=== PATIENT | female | born 1970 | race Caucasian/White ===

== ENCOUNTER → 2019-11-23 09:47 | Outpatient (BNVA) | payer MEDICAID, SELFPAY | PROVIDERS: PCP Nurse Practitioner Family; Visit Provider Specialist | DX: G43.711 Chronic migraine without aura, intractable, with status migrainosus (principal); F17.210 Nicotine dependence, cigarettes, uncomplicated | CPT/HCPCS: 64615; J0585 ==

== ENCOUNTER → 2020-02-29 09:18 | Outpatient (BNVA) | payer MEDICAID, SELFPAY | PROVIDERS: PCP Nurse Practitioner Family; Visit Provider Specialist | DX: G43.711 Chronic migraine without aura, intractable, with status migrainosus (principal); I65.29 Occlusion and stenosis of unspecified carotid artery; F17.210 Nicotine dependence, cigarettes, uncomplicated | CPT/HCPCS: 64615; J0585 ==

== ENCOUNTER → 2020-07-04 08:13 | Outpatient (BNVA) | payer MEDICAID, SELFPAY | PROVIDERS: PCP Nurse Practitioner Family; Visit Provider Specialist | DX: G43.711 Chronic migraine without aura, intractable, with status migrainosus (principal); I65.23 Occlusion and stenosis of bilateral carotid arteries | CPT/HCPCS: 64615; 99212; J0585 ==

== ENCOUNTER → 2020-10-10 13:39 | Outpatient (BNVA) | payer MEDICAID, SELFPAY | PROVIDERS: PCP Nurse Practitioner Family; Visit Provider Specialist | DX: G43.711 Chronic migraine without aura, intractable, with status migrainosus (principal); I65.29 Occlusion and stenosis of unspecified carotid artery; F17.210 Nicotine dependence, cigarettes, uncomplicated | CPT/HCPCS: 64615; J0585 ==

== ENCOUNTER → 2021-01-02 09:47 | Outpatient (BNVA) | payer MEDICAID, SELFPAY | PROVIDERS: PCP Nurse Practitioner Family; Visit Provider Specialist | DX: G43.711 Chronic migraine without aura, intractable, with status migrainosus (principal); I65.29 Occlusion and stenosis of unspecified carotid artery; F17.210 Nicotine dependence, cigarettes, uncomplicated | CPT/HCPCS: 64615; 99213; J0585 ==

== ENCOUNTER 2021-01-09 09:33 | Outpatient (CLI) | payer MEDICAID, SELFPAY ==
--- NOTE | 2021-01-09 09:36 | XR_ITS ---
WS: [id number] Left foot, 3 views, 01/09/2021 Clinical Data: PAIN IN LEFT TOE/UNABLE TO BEND TOE HAVING PAIN Comparison: Left foot, 09/10/2008. Findings: There is osteoarthritic narrowing and sclerosis of the left first MTP joint of the foot. There are no fractures or dislocations. The soft tissues are normal. 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
== END 2021-01-09 09:34 | disposition home or self-care (01) ==
LOC: RAD 09:35
PROVIDERS: PCP Nurse Practitioner Family; Visit Provider Nurse Practitioner Family
DX: M19.072 Primary osteoarthritis, left ankle and foot (principal)
CPT/HCPCS: 73630

== ENCOUNTER 2021-01-14 12:14 | Outpatient (CLI) | payer MEDICAID, SELFPAY ==
--- NOTE | 2021-01-14 13:30 | USCV_ITS ---
Butch Alansi Age: 50 Gender: F : 1970 Exam Date: 01/14/2021 12:47 Ordering Phys: Lindsey Brown MD Technologist: Lorne Johnson Exam Location: [facility] [place] Indication: HX OF RT ICA STENT Risk Factors: SMOKER Previous Vascular Surgery: Right Brachial BP: / Left Brachial BP: / Right Left Velocity (cm/s) Spectral Plaque Velocity (cm/s) Spectral Plaque Syst/Diast Broadening Syst/Diast Broadening 58.40/ 20.90 Prox CCA 77.70 / 25.60 59.50/ 25.40 Mid CCA 117.50/ 43.90 63.90/ 32.00 Distal CCA 126.10/ 53.50 149.30/57.60 Prox ICA 66.80 / 17.20 138.50/50.40 Mid ICA 111.10/ 50.10 142.10/50.40 Distal ICA 124.70/ 50.10 48.50 ECA 215.00 2.33 ICA/CCA 0.99 Antegrade Vertebral Antegrade 42.70/ 17.10 cm/s 85.40/ 29.80 cm/s Tri Subclavian Tri 69.90 64.00 CONCLUSIONS Prior Right ICA stent Right ICA stenosis 50-69%. Left ICA stenosis <50%. Normal antegrade Doppler flow noted in the right vertebral artery. Normal antegrade Doppler flow noted in the left vertebral artery. Tip Gonsales MD (Electronically Signed) Final Date: 14 January 2021 15:57 S
== END 2021-01-14 12:15 | disposition home or self-care (01) ==
LOC: RAD 12:15
PROVIDERS: PCP Nurse Practitioner Family; Visit Provider Specialist
DX: I65.23 Occlusion and stenosis of bilateral carotid arteries (principal)
CPT/HCPCS: 93880

== ENCOUNTER 2021-01-20 13:51 | Outpatient (CLI) | payer MEDICAID, SELFPAY ==
--- NOTE | 2021-01-20 13:54 | MM_ITS ---
WS: [id number] BILATERAL DIGITAL SCREENING MAMMOGRAPHY WITH CAD CLINICAL INFORMATION: SCREENING HISTORY: Screening mammogram. No current complaints. COMPARISON: February 08, 2018 TECHNIQUE: Bilateral CC and MLO views. FINDINGS: Scattered fibroglandular densities bilaterally. Lucent centered calcifications right breast. Slightly spiculated subareolar asymmetric density right breast measuring 8 mm. Recommend right breast diagnos tic mammography and ultrasound for further evaluation. Left breast is unremarkable. MM/[place] [id number] IMPRESSION: BI-RADS: 0-Incomplete: Need additional imaging evaluation FOLLOW UP: Need Additional Imaging Recommend right breast diagnostic mammography and ultrasound.
== END 2021-01-20 13:52 | disposition home or self-care (01) ==
LOC: RADSHAW 13:53
PROVIDERS: PCP Nurse Practitioner Family; Visit Provider Nurse Practitioner Family
DX: Z12.31 Encounter for screening mammogram for malignant neoplasm of breast (principal); R92.1 Mammographic calcification found on diagnostic imaging of breast
CPT/HCPCS: 77067

== ENCOUNTER 2021-02-05 09:16 | Outpatient (CLI) | payer MEDICAID, SELFPAY ==
--- NOTE | 2021-02-05 09:21 | US_ITS ---
WS: [id number] RIGHT DIGITAL MAMMOGRAPHY WITH CAD CLINICAL INFORMATION: ABNORMAL MAMMOGRAM RT BREAST COMPARISON: January 20, 2021 TECHNIQUE: 3 views of the right breast were obtained. FINDINGS: Scattered fibroglandular densities of the right breast. Again seen is the dense subareolar asymmetric density similar to previous. Ultrasound is pending. Small ovoid nodule outer quadrant right breast likely represents a lymph node but ultrasound will als o be performed in this area. ULTRASOUND BREAST RIGHT TECHNIQUE: Ultrasound right breast focused area of concern. CLINICAL INFORMATION: ABNORMAL MAMMOGRAM RT BREAST COMPARISON: None. FINDINGS: Ultrasound right breast at the nipple and 9:00 position. Underlying dense parenchymal tissue at the n ipple. No underlying cystic or solid abnormalities. No suspicious lesions. No lesions to target for b iopsy. No suspicious abnormalities in the outer right breast. US/US breast RT limited* [id number] IMPRESSION: BI-RADS: 2-Benign FOLLOW UP: 1 Year Follow-up Recommend return to annual screening mammography.
== END 2021-02-05 09:17 | disposition home or self-care (01) ==
LOC: RADSHAW 09:17
PROVIDERS: PCP Nurse Practitioner Family; Visit Provider Nurse Practitioner Family
DX: R92.8 Other abnormal and inconclusive findings on diagnostic imaging of breast (principal)
CPT/HCPCS: 76642; 77065

== ENCOUNTER → 2021-03-10 10:16 | Outpatient (BNVA) | payer MEDICAID, SELFPAY | PROVIDERS: PCP Nurse Practitioner Family; Visit Provider Podiatrist Foot & Ankle Surgery | DX: M20.20 Hallux rigidus, unspecified foot (principal); Z20.822 Contact with and (suspected) exposure to COVID-19 | CPT/HCPCS: 87635 ==

== ENCOUNTER 2021-03-14 05:32 | Day surgery (SDC) | payer MEDICAID, SELFPAY ==
[2021-03-13 14:59] VITALS: BMI 37.9
[2021-03-14] VITALS (7 sets, daily range): BP systolic 88–154; BP diastolic 60–106; PULSE 67–88; RESP 16–26; TEMP 36.4–36.7; O2SAT 95–99
--- NOTE | 2021-03-14 | SCC_ITS ---
Procedure Done: Fusion Metatarsophalangel Joint left first 29195 8 seconds of fluoroscopic guidance, for a cumulative dose of 0.15 mGy, was provided to Dr. Louie by the radiology department. C-arm images of the LEFT foot were saved for the patient's permanent record. MTDD
[2021-03-14] MEDS: sodium chloride 0.9% 1,000 ML 30 ML IV (06:28)
--- NOTE | 2021-03-14 06:28 | W.PM.OPSUD ---
Surgery/Procedure H&P Update DATE OF PROCEDURE: March 14, 2021 DATE H&P PERFORMED: 02/17/21 H&P UPDATE INFORMATION: I have reviewed H&P completed within last 30 days, I have examined patient prior to procedure, No changes to prior documentation and H&P is in [facility] EMR on date indicated PREOP DIAGNOSIS: Rigidus, left PLANNED PROCEDURE: Operation Date: 03/14/21 07:00 Proposed Procedures p Fusion Metatarsophalangel Joint left first 85659 M20.20 M79.673(Left) - Han Louie DPM
[2021-03-14 06:31] LABS: Glucose Point of Care 142 mg/dL (70-110)
--- NOTE | 2021-03-14 06:39 | PM.OP ---
Operative Report Date of procedure: March 14, 2021 Pre-op Diagnosis: Left hallux rigidus Post-op diagnosis: same Procedure Done: Fusion Metatarsophalangel Joint left first [id number] Implants: [place] 28 3mm compression screw, 2.7 mm plate screws distally x3, 3.5 mm and 4.2 millimeter screws in the plate proximally. [place] 28 metatarsophalangeal joint arthrodesis plate anatomic. 3-0 Vicryl, 4-0 Vicryl, 4-0 nylon. Pathology: none sent Surgeon: Han Louie D.P.M. Etcher Apprentice Photoengraving: Jeffery Valle Anesthesia: MAC Estimated blood loss: Less than 10 mL Tourniquet time: See intraoperative documentation Condition: stable Disposition: PACU Brief History: Patient is a pleasant 50-year-old female with left hallux rigidus. History of cheilectomy and recurrence of dorsal enthesophytes, joint space narrowing and pain with daily activity standing and walking are difficult for her at this point. She has failed conservative measures consisting of anti-inflammatories both orally and topically, stretching exercises, supportive shoes and orthotics. She wishes to proceed with first metatarsophalangeal joint arthrodesis of her left foot. Risks include pain, bleeding, numbness, infection, chronic swelling, hypersensitivity, hyper paresthesias, loss of function, transfer pressure, transfer lesions, altered mechanics of her gait, delayed union, nonunion, malunion, hardware failure, hardware irritation, pulmonary embolism, deep vein thrombosis, heart attack, cerebrovascular accident, . Patient was seen in preop, she is n.p.o. since midnight, informed consent signed with patient and myself. Initialed left foot. No guarantees written, expressed or implied. She wishes to proceed. Procedure: Under mild sedation the patient was brought to the operating room and placed on the operating table in supine position. Anesthesia was then administered by the anesthesia service. Local anesthesia injected by myself consisting of 30 cc of one-to-one mixture 1% lidocaine 0.5% Marcaine plain and a left Johnson block fashion. Well-padded pneumatic tourniquet applied to the left ankle. Left lower extremity was scrubbed, prepped and draped utilizing normal aseptic technique. Left foot was then examined a weighted with an Esmarch bandage and tourniquet inflated to 250 mmHg. Attention was directed to the dorsal medial aspect of the left first metatarsophalangeal joint where a linear longitudinal incision was made medial and parallel to the extensor houses longus tendon. Dissection was carried down through subcutaneous tissue down the layer of periosteum utilizing blunt and sharp technique. Care was taken to retract and preserve neurovascular and tendinous structures. All bleeders were ligated and cauterized as necessary. Linear periosteal incision and capsular incision was performed at the dorsal medial aspect of the first metatarsophalangeal joint and the head of the first metatarsal and base of the proximal phalanx were freed from their soft tissue attachments. They were then denuded utilizing clinical and cuff reamers on power followed by saline flush and subchondral drilling utilizing a 2 mm subchondral drill bit both at the head of the first metatarsal and base of the proximal phalanx. Positioning was then confirmed utilizing simulated weightbearing with flat surface intraoperatively and confirmed this with fluoroscopy temporary fixation was performed followed by arthrodesis utilizing standard AO technique and manufacture recommendations of a anatomical first metatarsophalangeal arthrodesis plate provided by [employer] with a combination of 2.7 millimeter screws, 3.5 millimeter screws and 4.2 millimeter screws also a interfragmentary screw placement from distal medial to proximal lateral with a 3 mm partially-threaded cannulated screw with excellent bony apposition and compression noted. Fluoroscopy utilized to confirm placement of orthopedic hardware and anatomic alignment of the first ray is noted to be excellent all 3 cardinal planes. Temporary fixation was removed and incision was flushed with saline solution. Incision site closed in a layered fashion periosteum and capsule closed utilizing 3-0 Vicryl, subcutaneous tissue closed utilizing 4-0 Vicryl and skin 4-0 nylon. Dressings consisting of Adaptic, sterile 4 x 4, Kerlix and Markie wrap followed by application of cam boot. Tourniquet was deflated and a prompt hyperemic response is noted to the distal digits of the left foot. Patient tolerated procedure and anesthesia well and was transferred to the PACU with vital signs stable and vascular status intact. Following a period of postoperative monitoring she will be discharged home has crutches and a cam boot is to remain strict nonweightbearing to the left lower extremity she is to elevate her left foot at all times while at rest. Was provided a prescription for pain medication to be taken judiciously as needed and prescribed. I advised her to take a 81 mg aspirin once daily while nonweightbearing.
--- NOTE | 2021-03-14 06:55 | ANES.PREANE2 ---
Pre-Anesthetic Assessment Pre-Anesthetic Assessment: Height/Weight: Height 1.68 m Weight 106.594 kg Temp Pulse Resp BP Pulse Ox 98.0 F 67 18 154/96 99 03/14/21 06:12 03/14/21 06:12 03/14/21 06:12 03/14/21 06:12 03/14/21 06:12 Preop Diagnosis: Rigidus, left Proposed Procedure: Operation Date: 03/14/21 07:00 Proposed Procedures p Fusion Metatarsophalangel Joint left first 05379 M20.20 M79.673(Left) - Han Louie DPM Was Beta Snow taken within 24 hours: N/A Was Clonidine taken within 24 hours: N/A Last intake: Intake Last Liquid Date 03/13/21 Last Liquid Time 19:00 Last Solid Date 03/13/21 Last Solid Time 19:00 Social: Social History: Tobacco and No alcohol Exam: Pre-Anes Outpt Exam: alert, oriented x 3 and regular rate & rhythm Airway: Submandibular: WNL Cervical ROM: WNL MP: 2 Dentition: Chipped and Loose Additional comments: Very poor dentition, multiple missing and broken Pulmonary: Pulmonary: COPD CV/HEM: CV/HEM: HTN and PVD Metabolic: Metabolic: DM and Morbid obesity Neuropsych: Neuropsych: CVA and Deficit (left weakness) Anesthetic Plan: ASA status: 3 Anesthesia: Choice Risk of > 500 ml blood loss (7ml/kg in children): No Meds/Allergies Current Medications: Current Medications Generic Name Dose Route Start Last Admin Trade Name Freq PRN Reason Stop Dose Admin Sodium Chloride 1,000 mls @ 30 ml s/hr 03/14/21 06:00 03/14/21 06:28 Sodium Chloride 0.9% IV 03/15/21 05:59 30 mls/hr .Q24H RADHA Administration PFSH Anesthesia PFSH: Medical History (Updated 03/14/21 @ 06:42 by Han Louie DPM) Carotid stenosis, right Family History Other Cancer Diabetes Hypertension Social History (Updated 03/13/21 @ 09:20 by Amanda Urias MA) Smoking and tobacco status: current every day smoker cigarettes Packs smoked per day: 0.5 Quit status (tobacco): not considering quitting Second hand smoke exposure: Yes Smoking risk assessment/counseling performed?: No Alcohol intake: unknown Lives independently: Yes Household members: spouse and children Marital status: History of recent travel: No Data Anesthesia Other Labs: Laboratory Results - last 48 hr 03/14/21 06:20 POC Glucose 142 H Cardiac Studies: No Data to Display
[2021-03-14] MEDS: clindamycin 600 MG/50 ML PREMIX 100 MG IV (07:04)
--- NOTE | 2021-03-14 08:26 | XR_ITS ---
WS: [id number] Left foot, 3 views, 03/14/2021 Clinical Data: post op Comparison: Left foot, 01/09/2021. Findings: The patient has had a fusion of the left first MCP joint of the foot. There is a plate across the [place] int space with multiple orthopedic screws. There is an oblique screw aiding the fusion. XR/XR foot LT min 3V* [id number] Impression: Internal fixation and fusion of the left first MCP joint of the foot.
--- NOTE | 2021-03-14 15:46 | ANE.PACU2 ---
Inpatient post-anesthesia follow up: Airway intact: Yes Vital signs: Temperature 97.7 F Pulse Rate 72 Respiratory Rate 18 Blood Pressure 144/106 Pulse Oximetry 96 Oxygen Delivery Me thod Room Air Oxygen Flow Rate Fraction of Inspir ed Oxygen Hydration adequate: Yes Nausea and vomiting: No Pain level: 2 Mental status: Baseline
== END 2021-03-14 09:10 | disposition home or self-care (01) ==
PROVIDERS: PCP Nurse Practitioner Family; Visit Provider Podiatrist Foot & Ankle Surgery
PROC: (CPT 28750; principal; 2021-03-14 07:00)
DX: M20.22 Hallux rigidus, left foot (principal); J44.9 Chronic obstructive pulmonary disease, unspecified; I10 Essential (primary) hypertension; E66.01 Morbid (severe) obesity due to excess calories; Z68.37 Body mass index [BMI] 37.0-37.9, adult; I69.854 Hemiplegia and hemiparesis following other cerebrovascular disease affecting left non-dominant side; F17.210 Nicotine dependence, cigarettes, uncomplicated
CPT/HCPCS: 28750; 36416; 73630; 76000; 82962; 96365; C1713 ×2; J2704; J3490; J7030

== ENCOUNTER → 2021-03-21 09:58 | Outpatient (BNVA) | payer MEDICAID, SELFPAY | PROVIDERS: PCP Nurse Practitioner Family; Visit Provider Podiatrist Foot & Ankle Surgery | DX: Z98.890 Other specified postprocedural states (principal); Z98.1 Arthrodesis status | CPT/HCPCS: 73630 ==

== ENCOUNTER → 2021-03-27 14:43 | Outpatient (BNVA) | payer MEDICAID, SELFPAY | PROVIDERS: PCP Nurse Practitioner Family; Visit Provider Podiatrist Foot & Ankle Surgery | DX: M20.22 Hallux rigidus, left foot (principal) | CPT/HCPCS: 73630 ==

== ENCOUNTER → 2021-04-10 13:54 | Outpatient (BNVA) | payer MEDICAID, SELFPAY | PROVIDERS: PCP Nurse Practitioner Family; Visit Provider Podiatrist Foot & Ankle Surgery | DX: Z98.890 Other specified postprocedural states (principal); G43.711 Chronic migraine without aura, intractable, with status migrainosus; I65.29 Occlusion and stenosis of unspecified carotid artery; F17.210 Nicotine dependence, cigarettes, uncomplicated | CPT/HCPCS: 64615; 73630; J0585 ==

== ENCOUNTER → 2021-04-24 07:57 | Outpatient (BNVA) | payer MEDICAID, SELFPAY | PROVIDERS: PCP Nurse Practitioner Family; Visit Provider Podiatrist Foot & Ankle Surgery | DX: Z47.89 Encounter for other orthopedic aftercare (principal); Z98.1 Arthrodesis status | CPT/HCPCS: 73630 ==

== ENCOUNTER → 2021-04-30 13:33 | Outpatient (BNVA) | payer MEDICAID, SELFPAY | PROVIDERS: PCP Nurse Practitioner Family; Visit Provider Podiatrist Foot & Ankle Surgery | DX: Z47.89 Encounter for other orthopedic aftercare (principal); Z98.1 Arthrodesis status | CPT/HCPCS: 73630 ==

== ENCOUNTER → 2021-05-22 11:24 | Outpatient (BNVA) | payer MEDICAID, SELFPAY | PROVIDERS: PCP Nurse Practitioner Family; Visit Provider Podiatrist Foot & Ankle Surgery | DX: Z47.89 Encounter for other orthopedic aftercare (principal); Z98.1 Arthrodesis status | CPT/HCPCS: 73630 ==

== ENCOUNTER → 2021-07-10 13:25 | Outpatient (BNVA) | payer MEDICAID, SELFPAY | PROVIDERS: PCP Nurse Practitioner Family; Visit Provider Specialist | DX: G43.711 Chronic migraine without aura, intractable, with status migrainosus (principal); I65.29 Occlusion and stenosis of unspecified carotid artery; R29.810 Facial weakness; F17.210 Nicotine dependence, cigarettes, uncomplicated | CPT/HCPCS: 64615; 99214; J0585 ==

== ENCOUNTER 2021-08-08 09:04 | Outpatient (CLI) | payer MEDICAID, SELFPAY ==
--- NOTE | 2021-08-08 09:30 | MR_ITS ---
WS: [id number] MRI BRAIN WITHOUT CONTRAST HISTORY: Headaches. COMPARISON: 12/10/2016 TECHNIQUE: Diffusion imaging, multiplanar T1, T2 and FLAIR imaging obtained. Diffusion-weighted imaging is normal. Remote infarct with increasing encephalomalacia involving the R IGHT posterior frontal lobe. Infarct extends through the centrum semiovale ovale and reich radiata t hrough the putamen. This infarct was previously described on 12/10/2016 with progression of gliosis and encephalomalacia. There is a small hemorrhagic component to this remote infarct. Additional scattere d bilateral T2 and FLAIR signal hyperintensities in the supratentorial white matter with only very mi nimal progression of disease. Ventricles and extra-axial spaces are normal. No inferior displacement of cerebellar tonsils. The sella turcica and pituitary gland are unremarkabl e. Dural venous sinuses and [place] of [place] demonstrate no abnormality on this unenhanced studies. Paranasal sinuses: Clear. Mastoid air cells: Normal. Calvarium and scalp: Intact. MR/MR head wo con* [id number] IMPRESSION: 1. No acute infarct. 2. Increasing encephalomalacia and gliosis involving the RIGHT frontal lobe in farct with involvement of the putamen since 2017. No acute hemorrhage or progre ssion. 3. Otherwise mild chronic microvascular ischemic disease in the white matter i s stable.
--- NOTE | 2021-08-08 09:45 | MR_ITS ---
WS: [id number] MRA ANGIOGRAPHY BILL [place] OF HECT[place] HISTORY: R51.9 - Headache, unspecified COMPARISON: None available. TECHNIQUE: 3-D MR angiography is performed of the [place]. All images are reviewed including source images. Distal vertebral and basilar arteries are intact with no significant stenosis or plaque. Posterior ce rebral arteries are normal course and caliber. Posterior communicating arteries are poorly visualized . RIGHT may be absent in the LEFT is hypoplastic. Intracranial portion of the internal carotid arteries are normal course and caliber. No significant a therosclerosis, stenosis or aneurysm identified. Middle and anterior cerebral arteries are both paten t with no significant disease. Anterior communicating artery is also normal. Remote infarct noted within the RIGHT basal ganglia. Additional smaller lacunar infarct in the RIGHT centrum semiovale ovale. MR/MR angio head wo con [id number] IMPRESSION: 1. No occlusions or significant atherosclerotic disease within the [place]. 2. No aneurysms.
== END 2021-08-08 09:05 | disposition home or self-care (01) ==
LOC: RADSHAW 09:08
PROVIDERS: PCP Nurse Practitioner Family; Visit Provider Specialist
DX: I65.29 Occlusion and stenosis of unspecified carotid artery (principal); R29.810 Facial weakness; R51.9 Headache, unspecified
CPT/HCPCS: 70544; 70551

== ENCOUNTER → 2021-09-08 15:01 | Outpatient (BNVA) | payer MEDICAID, SELFPAY | PROVIDERS: PCP Nurse Practitioner Family; Visit Provider Podiatrist Foot & Ankle Surgery | DX: Z47.89 Encounter for other orthopedic aftercare (principal); Z98.1 Arthrodesis status | CPT/HCPCS: 73630 ==

== ENCOUNTER → 2021-10-30 09:21 | Outpatient (BNVA) | payer MEDICAID, SELFPAY | PROVIDERS: PCP Nurse Practitioner Family; Visit Provider Specialist | DX: G43.711 Chronic migraine without aura, intractable, with status migrainosus (principal); G51.32 Clonic hemifacial spasm, left; I65.29 Occlusion and stenosis of unspecified carotid artery; I69.30 Unspecified sequelae of cerebral infarction; R90.82 White matter disease, unspecified | CPT/HCPCS: 64615; 99215; J0585 ==

== ENCOUNTER → 2022-01-22 09:25 | Outpatient (BNVA) | payer MEDICARE, MEDICAID, SELFPAY | PROVIDERS: PCP Nurse Practitioner Family; Visit Provider Specialist | DX: I65.29 Occlusion and stenosis of unspecified carotid artery (principal); Z86.73 Personal history of transient ischemic attack (TIA), and cerebral infarction without residual deficits; F17.210 Nicotine dependence, cigarettes, uncomplicated; G43.711 Chronic migraine without aura, intractable, with status migrainosus | CPT/HCPCS: 64615; 99214; J0585 ==

== ENCOUNTER → 2022-04-16 08:29 | Outpatient (BNVA) | payer MEDICARE, MEDICAID, SELFPAY | PROVIDERS: PCP Nurse Practitioner Family; Visit Provider Specialist | DX: G43.711 Chronic migraine without aura, intractable, with status migrainosus (principal); I65.21 Occlusion and stenosis of right carotid artery; Z86.73 Personal history of transient ischemic attack (TIA), and cerebral infarction without residual deficits; F17.210 Nicotine dependence, cigarettes, uncomplicated | CPT/HCPCS: 64615; 99212; 99213; J0585 ==

== ENCOUNTER 2022-05-25 10:09 | Emergency (ER) | payer MEDICARE, MEDICAID, SELFPAY ==
[2022-05-25 10:49] VITALS: BP 135/76; PULSE 70; RESP 16; TEMP 36.5; O2SAT 99; BMI 31.6
--- NOTE | 2022-05-25 10:55 | CT_ITS ---
WS: [id number] CT HEAD TECHNIQUE: Noncontrast CT of the head obtained from the skullbase to the vertex. CLINICAL INFORMATION: FALL POSITIVE LOC COMPARISON: MRI August 08, [address] DLP: 1079.[address] scans at [facility] use at least one of these dose optimization techniques: automated e xposure control; mA and/or kV adjustment per patient size (includes targeted exams where dose is matc hed to clinical indication); or iterative reconstruction. FINDINGS: No evidence of intracranial hemorrhage or mass effect. Ventricular system and basal cisterns are negron nt. Chronic infarct in the RIGHT periventricular white matter and reich radiata with encephalomalaci a unchanged since August 08, 2021. Associated volume loss. No other suspicious findings. Paranasal sinuses and mastoid air cells are well aerated. .Normal visualized soft tissues. CT/CT head wo con* [id number] IMPRESSION: 1. No evidence of intracranial hemorrhage or mass effect. 2. Chronic infarct with encephalomalacia in the RIGHT periventricular white ma tter and reich radiata unchanged. 3. No acute intracranial findings.
--- NOTE | 2022-05-25 10:55 | CT_ITS ---
WS: [id number] CT CERVICAL TRAUMA TECHNIQUE: Noncontrast CT of the cervical spine with coronal and sagittal reformatted images. CLINICAL INFORMATION: FALL POSITIVE LOC COMPARISON: None. DLP: 359.[address] scans at [facility] use at least one of these dose optimization techniques: automated e xposure control; mA and/or kV adjustment per patient size (includes targeted exams where dose is matc hed to clinical indication); or iterative reconstruction. FINDINGS: Straightening of the normal cervical lordosis with slight reversal. Disc space narrowing worse at C5- C6 with osteophytic ridging. Normal craniocervical junction. Normal C1-C2 articulation. Dens is brandon l in appearance. Normal occipital condyles. No high-grade spinal canal narrowing. Normal C1 ring. No evidence of acute fracture or dislocation. Normal prevertebral soft tissues. Mastoids air cells are well aerated. CT/CT cervical spin wo con* [id number] IMPRESSION: No evidence of acute fracture or dislocation.
[2022-05-25 11:10] VITALS: BP 144/89; PULSE 67; O2SAT 96
--- NOTE | 2022-05-25 11:17 | ED_ITS ---
HPI - Fall General: Chief Complaint: Fall Stated Complaint: Fell, hit head Time Seen by Provider: 05/25/22 11:15 Source: patient Mode of arrival: ambulatory History of Present Illness: 51-year-old female presents emergency room after a fall yesterday. She did hit her head she has a little bit of neck discomfort as well to she takes aspirin 325 daily no other anticoagulants. She is diabetic has a history of hypertension. She was standing looking at pictures on the phone next to another person felt her legs get weak and then passed out she hit her head left suboccipital region bystanders thought she was out for few seconds maybe as much is 3030 seconds and then she recovered. Does not sound from her description like there is a postictal phase. complaint: fall Onset (ago): day(s) (1) Fall from: standing Place fall occurred: home Loss of consciousness: Unsure Length of LOC: second(s) Prolonged down time: no Symptoms prior to fall: lightheadedness Location of injury: head and neck Associated symptoms-after fall: Reports headache(s) and neck pain; Denies abdominal pain or chest pain Review of Systems Const: Denies: fever(s), chills, body aches, change in appetite, fatigue or malaise ENMT: Denies: throat pain, ear or mastoid pain, nasal discharge or nasal congestion Card: Denies: chest pain, edema, dyspnea on exertion or orthopnea Resp: Denies: dyspnea, productive cough or non-productive cough GI: Denies: abdominal pain, nausea, vomiting, hematemesis, coffee ground emesis, diarrhea, constipation, bloating, hematochezia or melena : Denies: flank pain, difficulty voiding, dysuria, urinary frequency or urinary urgency Musc: Reports: neck pain Skin/Breast: Denies: rash or pruritus Neuro: Reports: headache(s) PFSH ED PFSH: Medical History Carotid stenosis, right Family History Other Cancer Diabetes Hypertension Social History Smoking and tobacco status: current every day smoker cigarettes Packs smoked per day: 0.5 Quit status (tobacco): not considering quitting Second hand smoke exposure: Yes Smoking risk assessment/counseling performed?: No Alcohol intake: unknown Lives independently: Yes Household members: spouse and children Marital status: History of recent travel: No Physical Exam Const: COMMON NORMALS: average body habitus, patient oriented x3 and alert GENERAL APPEARANCE: cooperative, comfortable, well kempt and well developed NUTRITIONAL APPEARANCE: obese ORIENTATION/CONSCIOUSNESS: Yes awake, Yes oriented to person and Yes oriented to place HENMT: COMMON NORMALS: normocephalic, atraumatic, EAC's normal, TM's normal bilaterally, Normal external nose present, moist oral mucous membranes and oropharynx normal HEAD & SCALP: normocephalic and atraumatic NOSE: Normal external nose present EXTERNAL AUDITORY CANAL: EAC's normal TYMPANIC MEMBRANE: TM's normal bilaterally MOUTH: Normal oral and palatal mucosa present, lip normal and tongue normal THROAT: posterior oropharynx normal and tonsils normal Eye: COMMON NORMALS: Equal, round and reactive pupils present, EOMs intact bilaterally, conjunctivae normal and no scleral icterus CONJUNCTIVA: Yes conjunctivae normal PUPIL: Yes Equal, round and reactive pupils present Neck/C-Spine: COMMON NORMALS: no meningeal signs Resp: COMMON NORMALS: normal respiratory effort, No retractions, No use of accessory muscles and clear to auscultation bilaterally AUSCULTATION: clear to auscultation bilaterally Cardio: COMMON NORMALS: regular rate and regular rhythm RATE: regular rate RHYTHM: regular rhythm HEART SOUNDS: no murmurs GI: COMMON NORMALS: Normal to inspection, nondistended, normoactive bowel sounds present, Soft to palpation and No hepatosplenomegaly present PALPATION: Yes Soft to palpation and Yes No hepatosplenomegaly present : COMMON NORMALS: Yes no CVA tenderness BLADDER/KIDNEY EXAM: Yes no CVA tenderness Back/Pelvis: COMMON NORMALS: no CVA tenderness LUMBAR SPINE/LOWER BACK: Yes normal to inspection Extremity: COMMON NORMALS: no clubbing, cyanosis or edema, no calf tenderness and no pedal edema Neuro: COMMON NORMALS: patient oriented x3 SENSORIUM/ORIENTATION: Yes alert, Yes oriented to person and Yes oriented to place MENINGEAL SIGNS: Yes no meningeal signs Psych: APPEARANCE: Yes well kempt Skin: COMMON NORMALS: no rashes or lesions noted and turgor normal GENERAL SKIN EXAM: no rashes or lesions noted and turgor normal Course Vital Signs: Vital signs: Vital Signs Temperature 97.7 F 05/25/22 10:49 Pulse Rate 62 05/25/22 13:30 Respiratory Rate 16 05/25/22 10:49 Blood Pressure 116/76 05/25/22 13:30 Pulse Oximetry 95 05/25/22 13:30 MDM - Fall Medical Decision Making Imaging unremarkable. Patient released from the c-collar has full range of motion of the neck no pain with palpation on the thoracic or lumbar spine. We will go ahead and discharge her home steroids muscle relaxers anti- inflammatories follow-up as needed Medical Records I reviewed the patient's medical records. Lab Data I reviewed the patient's lab results. Radiology Impressions Cervical Spine CT 05/25/22 10:55 IMPRESSION: No evidence of acute fracture or dislocation. Head CT 05/25/22 10:55 IMPRESSION: 1. No evidence of intracranial hemorrhage or mass effect. 2. Chronic infarct with encephalomalacia in the RIGHT periventricular white matter and reich radiata unchanged. 3. No acute intracranial findings. Discharge Plan Discharge Patient Disposition: Home Clinical Impression: Fall, Closed head injury Condition: Stable Prescriptions: New prednisone 20 mg tablet 20 mg PO TID Qty: 15 0RF Rx Instructions: 1 p.o. 3 times daily x3 days, 1 p.o. twice daily x2 days, 1 p.o. daily x2 days diclofenac sodium 75 mg tablet,delayed release (DR/EC) 75 mg PO Q12H PRN (Reason: pain) Qty: 20 0RF tizanidine 4 mg capsule 4 mg PO Q6H PRN (Reason: muscle spasticity) Qty: 20 0RF Rx Instructions: do not exceed 3 doses per 24 hrs No Action amitriptyline 25 mg tablet 25 mg PO BEDTIME 0RF aspirin 325 mg tablet 325 mg PO QAM 0RF irbesartan-hydrochlorothiazide 300-12.5 mg tablet 1 tab PO QAM 0RF Tylenol Ex Str Rapid Release 500 mg Tablet 1,000 mg PO Q6H PRN (Reason: Pain) 0RF metformin 500 mg tablet extended release 24 hr 1,000 mg PO BID 0RF fenofibrate nanocrystallized 145 mg tablet 145 mg PO BEDTIME 0RF Victoza 2-West 0.6 mg/0.1 mL (18 mg/3 mL) pen injector 1.8 mg SUBCUT QAM 0RF Lumigan 0.01 % drops 1 drp ophthalmic (eye) BEDTIME 0RF Rx Instructions: both eyes Botox See Rx Instructions .ROUTE .COMPLEX 0RF Rx Instructions: every 12 weeks venlafaxine 150 mg capsule,extended release 24hr 150 mg PO DAILY 0RF Discharge Orders: Discharge ED (Routine); Ordered 05/25/22 Ordered By: Gage Wilcox Referrals: Anh Patel FNP [Primary Care Provider] - Discharge Diet: Usual diet Discharge Activity: Increase activity as tolerated Patient Instructions: Opioid Safety Activity Restrictions/Additional Instructions: Follow-up with your primary care doctor if not improving Coding Level of Care Code ED Law Reporter for Srini Fwnathanael Exam Comprehensive
[2022-05-25 12:00] VITALS: BP 141/79; PULSE 64; O2SAT 98
[2022-05-25 13:00] VITALS: BP 130/86; PULSE 65; O2SAT 99
[2022-05-25 13:30] VITALS: BP 116/76; PULSE 62; O2SAT 95
== END 2022-05-25 14:01 | disposition home or self-care (01) ==
PROVIDERS: Emergency Provider Family Medicine; PCP Nurse Practitioner Family
DX: S09.8XXA Other specified injuries of head, initial encounter (principal); Z79.82 Long term (current) use of aspirin; Z79.84 Long term (current) use of oral hypoglycemic drugs; F17.210 Nicotine dependence, cigarettes, uncomplicated; W18.39XA Other fall on same level, initial encounter
CPT/HCPCS: 70450; 72125; 99284

== ENCOUNTER 2022-06-15 10:18 | Outpatient (CLI) | payer MEDICARE, MEDICAID, SELFPAY ==
--- NOTE | 2022-06-15 11:00 | MR_ITS ---
WS: [id number] MRA CAROTID WITHOUT GADOLINIUM ENHANCEMENT TECHNIQUE: Axial 2-D and 3-D TOF images obtained with axial images and axial, sagittal, and coronal 2 -D reformatted images. CLINICAL INFORMATION: I65.29 - Occlusion and stenosis of unspecified carotid ar... COMPARISON: CTA 017 FINDINGS: RIGHT: RIGHT common carotid artery is patent. RIGHT carotid bulb stent. RIGHT ICA is patent to the sk ull base. ICA proximal and distal to the stent are patent. Susceptibly artifact in the proximal and d istal junctional aspect of the stent. Flow is visualized within the stent. LEFT: LEFT common carotid artery is patent. No significant LEFT ICA stenosis. LEFT ICA is patent to t he skull base. Codominant patent vertebral arteries bilaterally. Proximal visualized basilar artery is patent. Both ICAs are patent to the skull base. Proximal ROSEANN and MCA vessels appear patent. MR/MR angio neck wo con [id number] IMPRESSION: 1. Proximal RIGHT ICA stent with susceptibility artifact in this area. ICA pro ximal and distal to the stent are patent. Stent patency would be better evaluat ed with ultrasound or CTA although no evidence of RIGHT ICA stenosis. 2. Normal LEFT ICA. No significant LEFT ICA stenosis. 3. Codominant and patent vertebral arteries bilaterally.
== END 2022-06-15 10:19 | disposition home or self-care (01) ==
PROVIDERS: PCP Nurse Practitioner Family; Visit Provider Specialist
DX: I65.29 Occlusion and stenosis of unspecified carotid artery (principal)
CPT/HCPCS: 70547

== ENCOUNTER → 2022-07-09 08:02 | Outpatient (BNVA) | payer MEDICARE, MEDICAID, SELFPAY | PROVIDERS: PCP Nurse Practitioner Family; Visit Provider Specialist | DX: G43.711 Chronic migraine without aura, intractable, with status migrainosus (principal); Z95.5 Presence of coronary angioplasty implant and graft | CPT/HCPCS: 64615; 99213; 99214; J0585 ==

== ENCOUNTER → 2022-08-13 08:47 | Outpatient (BNVA) | payer MEDICARE, MEDICAID, BC, SELFPAY | PROVIDERS: PCP Nurse Practitioner Family; Visit Provider Surgery | DX: Z12.11 Encounter for screening for malignant neoplasm of colon (principal) | CPT/HCPCS: 99024 ==

== ENCOUNTER → 2022-10-08 08:19 | Outpatient (BNVA) | payer MEDICARE, MEDICAID, SELFPAY | PROVIDERS: PCP Nurse Practitioner Family; Visit Provider Specialist | DX: G43.711 Chronic migraine without aura, intractable, with status migrainosus (principal) | CPT/HCPCS: 64615; 95911; J0585 ==

== ENCOUNTER → 2023-01-08 08:03 | Outpatient (BNVA) | payer MEDICARE, MEDICAID, SELFPAY | PROVIDERS: PCP Registered Nurse; Referring Provider Specialist; Visit Provider Specialist | DX: G43.711 Chronic migraine without aura, intractable, with status migrainosus (principal) | CPT/HCPCS: 64615; J0585 ==

== ENCOUNTER 2023-01-12 09:07 | Outpatient (CLI) | payer MEDICARE, MEDICAID, SELFPAY ==
--- NOTE | 2023-01-12 09:15 | MM_ITS ---
WS: [id number] BILATERAL SCREENING DIGITAL TOMOSYNTHESIS MAMMOGRAM WITH CAD HISTORY: SCREENING COMPARISON: 02/05/2021, 03/12/2015, 01/20/2021 and 02/08/2018 Bilateral CC and MLO views with tomosynthesis and synthetic mammography submitted. Computer aided det ection analyzed. Breast composition: There are scattered areas of fibroglandular density. No suspicious masses, microc alcifications or architectural distortion. Benign calcifications in each breast. The asymmetries are stable within each breast. MM/[place] [id number] IMPRESSION: BI-RADS: 2-Benign FOLLOW UP: 1 Year Follow-up
== END 2023-01-12 09:08 | disposition home or self-care (01) ==
LOC: RAD 09:10
PROVIDERS: PCP Registered Nurse; Visit Provider Nurse Practitioner Family
DX: Z12.31 Encounter for screening mammogram for malignant neoplasm of breast (principal)
CPT/HCPCS: 77063; 77067

== ENCOUNTER → 2023-01-13 08:55 | Outpatient (BNVA) | payer MEDICARE, MEDICAID, SELFPAY | PROVIDERS: PCP Registered Nurse; Visit Provider Specialist | DX: M77.8 Other enthesopathies, not elsewhere classified (principal) | CPT/HCPCS: 73030; 99204 ==

== ENCOUNTER → 2023-01-28 07:53 | Outpatient (BNVA) | payer MEDICARE, MEDICAID, SELFPAY | PROVIDERS: PCP Registered Nurse; Visit Provider Podiatrist Foot & Ankle Surgery | DX: L60.0 Ingrowing nail (principal) | CPT/HCPCS: 11750 ==

== ENCOUNTER 2023-02-11 08:01 | Outpatient (CLI) | payer MEDICARE, MEDICAID, SELFPAY ==
--- NOTE | 2023-02-11 08:00 | MR_ITS ---
WS: [email or web address] EXAMINATION: MR shoulder LT wo con* [id number] ORDER DATE: 02/11/2023 8:07 AM COMPARISON: MRI 2018 HISTORY: left shoulder pain CONTRAST: 2018 TECHNIQUE: Axial T2 STAR, coronal proton density fat sat, sagittal T2 fat sat, sagittal proton densit y fat sat, axial proton density fat sat, coronal T2 fat sat, and coronal T1 performed. After contrast , axial T1 fat sat, coronal T1 fat sat, and sagittal T1 fat sat were performed. FINDINGS: Moderate degenerative arthritis AC joint with small amount of fluid and edema. Trace subacromial flui d. Postoperative changes are new compared to previous. Minimal impingement on the distal supraspinatu s. Subacromial space is improved. Mild tendinopathy distal supraspinatus. No acute supraspinatus tear s. Normal infraspinatus. Normal teres minor. Normal subscapularis. Normal biceps tendon in the bicipital groove. Subchondral cystic change involving the glenoid. Moderate degenerative arthritis glenohumera l articulation. Tendinopathy involving the intra-articular biceps tendon. MR/MR shoulder LT wo con* [id number] IMPRESSION: 1. Moderate degenerative arthritis AC joint with mild edema and associated pos toperative changes from previous. Subacromial space is improved. 2. Mild tendinopathy involving the bursal surface distal supraspinatus with mi ld chronic thinning. 3. Rotator cuff is otherwise normal in appearance. 4. T2 hyperintensity with enlargement of the intra-articular biceps tendon com patible with tendinopathy. 5. Biceps tendon is intact within the bicipital groove. 6. Small amount of fluid in the subcoracoid bursa.
== END 2023-02-11 08:02 | disposition home or self-care (01) ==
LOC: RAD 08:03
PROVIDERS: PCP Registered Nurse; Visit Provider Specialist
DX: M13.812 Other specified arthritis, left shoulder; Z98.890 Other specified postprocedural states
CPT/HCPCS: 73221; 99213

== ENCOUNTER → 2023-04-08 07:52 | Outpatient (BNVA) | payer MEDICARE, MEDICAID, SELFPAY | PROVIDERS: PCP Registered Nurse; Visit Provider Specialist | DX: G43.711 Chronic migraine without aura, intractable, with status migrainosus (principal); F32.A Depression, unspecified; G51.32 Clonic hemifacial spasm, left | CPT/HCPCS: 64615; 99212; J0585 ==

== ENCOUNTER → 2023-07-08 07:57 | Outpatient (BNVA) | payer MEDICARE, MEDICAID, SELFPAY | PROVIDERS: PCP Registered Nurse; Visit Provider Specialist | DX: G43.711 Chronic migraine without aura, intractable, with status migrainosus (principal) | CPT/HCPCS: 64615; 95911; J0585 ==

== ENCOUNTER → 2023-10-07 07:58 | Outpatient (BNVA) | payer MEDICARE, MEDICAID, SELFPAY | PROVIDERS: PCP Registered Nurse; Visit Provider Specialist | DX: G43.711 Chronic migraine without aura, intractable, with status migrainosus (principal) | CPT/HCPCS: 64615 ==

== ENCOUNTER → 2024-01-06 07:58 | Outpatient (BNVA) | payer MEDICARE, MEDICAID, SELFPAY | PROVIDERS: PCP Registered Nurse; Visit Provider Specialist | DX: G43.711 Chronic migraine without aura, intractable, with status migrainosus (principal) | CPT/HCPCS: 64615 ==

== ENCOUNTER → 2024-02-17 08:28 | Outpatient (BNVA) | payer MEDICARE, MEDICAID, SELFPAY | PROVIDERS: PCP Registered Nurse; Visit Provider Podiatrist Foot & Ankle Surgery | DX: E11.42 Type 2 diabetes mellitus with diabetic polyneuropathy (principal); M20.42 Other hammer toe(s) (acquired), left foot; Z79.84 Long term (current) use of oral hypoglycemic drugs | CPT/HCPCS: 99213 ==

== ENCOUNTER → 2024-03-09 09:04 | Outpatient (BNVA) | payer MEDICARE, MEDICAID, SELFPAY | PROVIDERS: PCP Registered Nurse; Visit Provider Podiatrist Foot & Ankle Surgery | DX: E11.42 Type 2 diabetes mellitus with diabetic polyneuropathy; M20.42 Other hammer toe(s) (acquired), left foot; Z79.84 Long term (current) use of oral hypoglycemic drugs | CPT/HCPCS: 28010 ==

== ENCOUNTER → 2024-04-06 08:02 | Outpatient (BNVA) | payer MEDICARE, MEDICAID, SELFPAY | PROVIDERS: PCP Registered Nurse; Visit Provider Specialist | DX: G43.711 Chronic migraine without aura, intractable, with status migrainosus (principal) | CPT/HCPCS: 64615 ==

== ENCOUNTER → 2024-07-06 15:13 | Outpatient (BNVA) | payer MEDICARE, MEDICAID, SELFPAY | PROVIDERS: PCP Registered Nurse; Visit Provider Specialist | DX: G43.711 Chronic migraine without aura, intractable, with status migrainosus (principal) | CPT/HCPCS: 64615 ==

== ENCOUNTER → 2024-10-13 09:11 | Outpatient (BNVA) | payer MEDICARE, MEDICAID, SELFPAY | PROVIDERS: PCP Registered Nurse; Visit Provider Specialist | DX: G43.711 Chronic migraine without aura, intractable, with status migrainosus (principal) | CPT/HCPCS: 64615 ==

== ENCOUNTER → 2024-11-22 08:33 | Outpatient (BNVA) | payer MEDICARE, MEDICAID, SELFPAY | PROVIDERS: PCP Registered Nurse; Visit Provider Podiatrist Foot & Ankle Surgery | DX: M20.42 Other hammer toe(s) (acquired), left foot (principal); E11.42 Type 2 diabetes mellitus with diabetic polyneuropathy; M24.575 Contracture, left foot | CPT/HCPCS: 73630; 99214 ==

== ENCOUNTER 2025-01-05 07:28 | Day surgery (SDC) | payer MEDICARE, MEDICAID, SELFPAY ==
--- NOTE | 2025-01-05 | XR_ITS ---
WS: [id number] XR foot LT min 3V* [id number] REASON FOR EXAM: Left second hammertoe correction, left third hammertoe corre FINDINGS: Arthrodesis of the PIP joints of the second and third toes. Surgical appliances are intact and in proper position and alignment. Appropriate alignment of arthrodesis. XR/XR foot LT min 3V* [id number] IMPRESSION: Left foot arthrodesis as above.
[2025-01-05 07:42] VITALS: BP 115/75; PULSE 76; RESP 18; TEMP 36.4; O2SAT 99; BMI 31.8
[2025-01-05 07:54] LABS: Glucose Point of Care 204 mg/dL (70-110)
[2025-01-05] MEDS: sodium chloride 0.9% 1,000 ML 30 ML IV (07:54)
[2025-01-05] MEDS: gabapentin 300 mg Capsule PO (07:55)
[2025-01-05] MEDS: CELEcoxib 200 mg Capsule 400 MG PO (07:55)
--- NOTE | 2025-01-05 08:28 | ECG_ITS ---
[facility]05 Pat Name: Butch Alanis Department: Room: Gender: Female Senior Data Quality Analyst: : 1970 Requested By: Yuval Porter Order Number: [id number] Lashay MD: Angel Urena M.D. Measurements Intervals [place] Rate: 66 P: 56 MT: 164 QRS: 3 QRSD: 81 T: 68 QT: 409 QTc: 430 Interpretive Statements SINUS RHYTHM POSSIBLE LEFT ATRIAL ENLARGEMENT [-0.1mV P-WAVE IN V1/V2] LOW QRS VOLTAGE IN PRECORDIAL LEADS [QRS DEFLECTION < 1.0 mV IN CHEST LEADS] Compared to ECG 10/11/2019 10:56:44 No significant changes Electronically Signed On 01-06-2025 08:18:04 SOCIOLOGY INSTRUCTOR by Angel Urena M.D. [email or web address]
--- NOTE | 2025-01-05 08:55 | P.HPUD_ITS ---
Surgery/Procedure H&P Update DATE OF PROCEDURE: January 05, 2025 DATE H&P PERFORMED: 01/05/25 H&P UPDATE INFORMATION: I have reviewed H&P completed within last 30 days, I have examined patient prior to procedure, No changes to prior documentation and H&P is in [facility] EMR on date indicated PREOP DIAGNOSIS: Left foot hammertoe and tendon contracture PLANNED PROCEDURE: Operation Date: 01/05/25 09:05 Proposed Procedures p Left foot Second flexor digitorum longus tendon transfer and Third flexor digitorum longus tendon transfer(Left) - Han Louie DPM s Left second hammertoe correction and Left third hammertoe correction(Left) - Han Louie DPM
--- NOTE | 2025-01-05 08:55 | ANES.PREANE2 ---
Pre-Anesthetic Assessment Height/Weight: Height 5 ft 6 in Weight 197 lb Temp Pulse Resp BP Pulse Ox O2 Del Method 97.5 F L 76 18 115/75 99 Room Air 01/05/25 07:42 01/05/25 07:42 01/05/25 07:42 01/05/25 07:42 01/05/25 07:42 01/05/25 07:42 Preop Diagnosis: Left foot hammertoe and tendon contracture Operation Date: 01/05/25 09:05 Proposed Procedures p Left foot Second flexor digitorum longus tendon transfer and Third flexor digitorum longus tendon transfer(Left) - Han Louie DPM s Left second hammertoe correction and Left third hammertoe correction(Left) - Han Louie DPM Was Beta Snow taken within 24 hours: N/A Was Clonidine taken within 24 hours: N/A Last intake: Intake Last Liquid Date 01/04/25 Last Liquid Time 22:00 Last Solid Date 01/04/25 Last Solid Time 20:00 Social No alcohol and No tobacco Exam alert, oriented x 3, clear to auscultation bilaterally and regular rate & rhythm Airway Submandibular: within normal limits Cervical ROM: within normal limits Mallampati: Class II Comments: Comments: Edentulous Anesthetic Plan ASA status: 3 Anesthesia: MAC Other: No prior issues with anesthesia NPO since yesterday evening History of hypertension on irbesartan?HCTZ Type 2 diabetes on Trulicity. Last taken 12/23/2024. Preop BS 204 YOKO, no treatment Prior smoker EKG showing sinus rhythm Plan for MAC anesthetic with local via surgeon Medications/Allergies Home Medications ?Medication ?Instructions ?Recorded ?Confirmed ?Last Taken ?Type aspirin 325 mg tablet 325 mg PO QAM 11/23/19 01/04/25 12/30/24 History irbesartan 300 1 tab PO QAM 11/23/19 01/04/25 01/04/25 History mg-hydrochlorothiazide 12.5 mg tablet Botox See Rx Instructions .Route .COMPLEX 05/25/22 01/04/25 10/13/24 History acetaminophen 500 mg tablet 1,000 mg PO Q6H PRN Pain 05/25/22 01/04/25 01/03/25 History fenofibrate nanocrystallized 145 145 mg PO BEDTIME 05/25/22 01/04/25 01/03/25 History mg tablet metformin 500 mg tablet,extended 1,000 mg PO BID 05/25/22 01/04/25 01/04/25 History release 24 hr venlafaxine 150 mg 150 mg PO DAILY #90 caps 10/10/24 01/04/25 01/04/25 Rx capsule,extended release 24 hr (Effexor XR) onabotulinumtoxinA 100 unit 155 unit IM ONCE #2 ea 12/29/24 01/04/25 Unknown Rx solution for injection (Botox) dulaglutide 0.75 mg/0.5 mL 0.75 mg SUBCUT .WEEKLY 01/04/25 01/04/25 12/23/24 History subcutaneous pen injector (Trulicity) Allergies Allergy/AdvReac Type Severity Reaction Status Date / Time methocarbamol Allergy Unknown ADR-Gastrointestinal Verified 01/04/25 14:21 Upset suture Allergy ALGY-Redness Verified 01/04/25 14:21 of Skin Current Medications Generic Name Dose Route Start Last Admin Trade Name Freq PRN Reason Stop Dose Admin Sodium Chloride 1,000 mls @ 30 mls/hr 01/05/25 07:45 01/05/25 07:54 Sodium Chloride 0.9% IV 01/06/25 07:44 30 mls/hr .Q24H RADHA Administration [facility] Anesthesia Medical History (Updated 11/23/24 @ 12:49 by Han Louie DPM) Carotid stenosis, right Family History Other Cancer Diabetes Hypertension Social History Smoking and tobacco/nicotine status: current every day tobacco/nicotine user (1 PPD) cigarettes Packs smoked per day: 0.5 Quit status (tobacco/nicotine): not considering quitting Second hand smoke exposure: Yes Alcohol intake: unknown Substance/Drug Use: unknown Lives independently: Yes Household members: spouse and children Marital status: Data Anesthesia Cardiac Studies: No Data to Display
--- NOTE | 2025-01-05 08:56 | PM.OPSURHP ---
Providers/Chief Complaint Primary Care Provider: Franca Albert Chief Complaint: M20.42 History of Present Illness Butch Alanis is a 54 year old female presents for surgical consultation of left second and third hammertoe deformity and tendon contracture, she has failed to alleviate her pain with accommodative shoes with of left foot extra space in the toebox, padding spacing and anti-inflammatories as well as activity modifications and orthotics. She would like to discuss surgical options. Review of Systems General: Reports: 10 or more systems reviewed and unremarkable except in HPI and below Const: Denies: fever(s) or chills Eyes: Denies: change in vision Card: Denies: chest pain or palpitations Resp: Denies: dyspnea or productive cough GI: Denies: abdominal pain, nausea or vomiting : Denies: flank pain Musc: Reports: extremity pain, joint pain, joint stiffness, limited range of motion and deformity Skin/Breast: Reports: skin tenderness; Denies: rash Neuro: Reports: difficulty walking; Denies: numbness in extremities, sensory changes or frequent falls Psych: Denies: suicidal ideation Christian/Lymph: Denies: easy bruising Medications/Allergies Home Medications ?Medication ?Instructions ?Recorded ?Confirmed ?Last Taken ?Type aspirin 325 mg tablet 325 mg PO QAM 11/23/19 01/04/25 12/30/24 History irbesartan 300 1 tab PO QAM 11/23/19 01/04/25 01/04/25 History mg-hydrochlorothiazide 12.5 mg tablet Botox See Rx Instructions .Route .COMPLEX 05/25/22 01/04/25 10/13/24 History acetaminophen 500 mg tablet 1,000 mg PO Q6H PRN Pain 05/25/22 01/04/25 01/03/25 History fenofibrate nanocrystallized 145 145 mg PO BEDTIME 05/25/22 01/04/25 01/03/25 History mg tablet metformin 500 mg tablet,extended 1,000 mg PO BID 05/25/22 01/04/25 01/04/25 History release 24 hr venlafaxine 150 mg 150 mg PO DAILY #90 caps 10/10/24 01/04/25 01/04/25 Rx capsule,extended release 24 hr (Effexor XR) onabotulinumtoxinA 100 unit 155 unit IM ONCE #2 ea 12/29/24 01/04/25 Unknown Rx solution for injection (Botox) dulaglutide 0.75 mg/0.5 mL 0.75 mg SUBCUT .WEEKLY 01/04/25 01/04/25 12/23/24 History subcutaneous pen injector (Trulicity) Allergies Allergy/AdvReac Type Severity Reaction Status Date / Time methocarbamol Allergy Unknown ADR-Gastrointestinal Verified 01/04/25 14:21 Upset suture Allergy ALGY-Redness Verified 01/04/25 14:21 of Skin PFSH PFSH: Medical History (Updated 01/05/25 @ 08:59 by Han Louie DPM) Carotid stenosis, right Family History Other Cancer Diabetes Hypertension Social History Smoking and tobacco/nicotine status: current every day tobacco/nicotine user (1 PPD) cigarettes Packs smoked per day: 0.5 Quit status (tobacco/nicotine): not considering quitting Second hand smoke exposure: Yes Alcohol intake: unknown Substance/Drug Use: unknown Lives independently: Yes Household members: spouse and children Marital status: Vital Signs Vitals Signs: Last Vital Signs Temp 97.5 F L 01/05/25 07:42 Pulse 76 01/05/25 07:42 Resp 18 01/05/25 07:42 BP 115/75 01/05/25 07:42 Pulse Ox 99 01/05/25 07:42 O2 Del Method Room Air 01/05/25 07:42 Weight: Weight last 48 hrs Weight 197 lb Physical Exam Narrative: EXAM NARRATIVE: GENERAL: Patient is alert and oriented ?3 and in no acute distress. The following is a focused left lower extremity exam. VASCULAR: Dorsalis pedis and posterior tibial arteries palpable +2. Capillary refill time less than 3 seconds to the distal hallux bilaterally. Calf is supple and nontender proximally and distally. Mild edema at the operative site consistent with postoperative course. NEUROLOGICAL: Protective sensation intact to light touch. DERMATOLOGICAL: Lower extremity skin is well-hydrated, normal texture and turgor. There are no open sores or lesions noted to the lower extremities. No erythema or ecchymosis present to the bilateral legs and feet. MUSCULOSKELETAL: Contracture of left foot flexor contracture noted at the left second and third toe. Sagittal plane dominant hammertoe deformity that is reducible left third and second toe that are painful. Muscle strength is 5 out of 5 in all 3 cardinal planes to the left foot and ankle. No range of motion at the first metatarsophalangeal joint and no pain to palpation at the operative site. No pain with posterior calf squeeze. CARDIOVASCULAR: S1, S2, normal rate, normal rhythm. Dorsalis pedis and posterior tibial arteries palpable. LUNGS: Clear to auscltation, no use of acessory muscles, no crackles or wheezes A&P Assessment and plan (1) Contracture, left foot: (2) Hammertoe of left foot: (3) Pain, foot: Qualifiers: Laterality: left Qualified Code(s): M79.672 - Pain in left foot Plan 54-year-old female with a history of toe deformity in the fourth toe, presenting with new toe deformities in the second and third toes of the left foot. Previously corrected fourth toe deformity exhibits satisfactory alignment post-tendon release. Currently, the second and third toes are contracted, causing discomfort. The second toe poses a risk for post-procedural complications such as cock-up or flail toe if treated in the clinic. Surgical intervention is necessary to address these deformities, aiming to achieve correct alignment and functionality of the toes and to prevent potential gait destabilization. 1. Use Of Aspirin Monitor current aspirin use due to implications in perioperative management. Adjustments or cessation might be needed prior to surgery to mitigate bleeding risks. 2. Toe Deformities Second And Third Toe, Left Foot Recommended surgical fusion and tendon transfer for alignment correction, to be scheduled as an outpatient procedure. The surgery will involve an incision over the toe's top and fusion of the joints, alongside transfer of part of the tendon to prevent upward displacement. Post-operative weightbearing as tolerated, with a recovery plan involving rest for approximately two weeks post-surgery. Surgery is tentatively planned for December, when the patient is off aspirin. X-ray left foot 3 views weightbearing taken in clinic standard AP oblique and lateral views significant for hammertoe deformity of left second and third toe. I reviewed at length with the patient, the risks, potential complications, benefits, alternatives, expectations, and typical outcomes associated with the surgery. The risks and potential complications were explained in detail, including but not limited to infection, wound dehiscence or soft tissue complications, bleeding and hematoma, chronic edema, neuritis or nerve damage producing numbness or chronic pain, CRPS, failure to relieve pain or worsening pain, thick / painful / unsightly scar, limited motion / stiffness, malposition, delayed union, malunion, or nonunion, fracture, reaction to implants, anesthetic complications, venous thromboembolism, and deformity recurrence. I discussed the notion of no regrets with the patient as it pertains to complications and outcomes. The patient seemed to understand the nature of the proposed care and required convalescence. They asked appropriate questions, answered to their satisfaction. They are aware no guarantees can be made as to a satisfactory outcome and they understand there may be other possible unforeseen complications or outcomes not listed here that will be treated accordingly if they arise. There were no written or implied guarantees given to the patient. They gave informed consent to proceed. Planning on left foot tendon transfer and hammertoe corrections of second and third toes outpatient January 05, 2025 local luan GORDON, rajwinder, 30 minutes. PDMP PDMP Reviewed: Not Reviewed Coding Level of Care Code Acute Code for Chg Fwd Diagnoses Contracture, left foot M24.575 Hammertoe of left foot M20.42 Left foot pain M79.672 Laterality: left
--- NOTE | 2025-01-05 08:59 | W.PM.OPSUD ---
Surgery/Procedure H&P Update DATE OF PROCEDURE: January 05, 2025 DATE H&P PERFORMED: 01/05/25 H&P UPDATE INFORMATION: I have reviewed H&P completed within last 30 days, I have examined patient prior to procedure, No changes to prior documentation and H&P is in [facility] [place] [facility] on date indicated PREOP DIAGNOSIS: Left foot hammertoe and tendon contracture PLANNED PROCEDURE: Operation Date: 01/05/25 09:05 Proposed Procedures p Left foot Second flexor digitorum longus tendon transfer and Third flexor digitorum longus tendon transfer(Left) - Han Louie DPM s Left second hammertoe correction and Left third hammertoe correction(Left) - Han Louie DPM
[2025-01-05] MEDS: ceFAZolin 2,000 mg SDV 2000 MG IVP (09:10)
--- NOTE | 2025-01-05 09:10 | P.OP_ITS ---
Operative Report Date of procedure: January 05, 2025 Pre-op diagnosis: Hammer toe of left foot M20.42 Contracture, left foot M24.575 Post-op diagnosis: Hammer toe of left foot M20.42 Contracture, left foot M24.575 Procedure done: 1) second flexor digitorum longus tendon transfer, left foot. CPT code 39289 2) third flexor digitorum longus tendon transfer, left foot. CPT code 42956 3) left second hammertoe correction. CPT code 17636 4) left third hammertoe correction. CPT code 33546 Implants: 4-0 Monocryl, 4-0 nylon, Sutton hammer tube 3.5 x 16 x 10 degrees and 2.75 x 14 x 10 degrees Specimens removed/disposition: None Pathology: None Surgeon: Han Louie DPM Color Paste Mixing Supervisor: Hair Carlisle Hailey Estimated blood loss: 2 29 IV fluids: See intraoperative documentation Urine output: No urine output Complications: No complications Brief History: 54-year-old female with a history of toe deformity in the fourth toe, presenting with new toe deformities in the second and third toes of the left foot. Previously corrected fourth toe deformity exhibits satisfactory alignment post- tendon release. Currently, the second and third toes are contracted, causing discomfort. The second toe poses a risk for post-procedural complications such as cock-up or flail toe if treated in the clinic. Surgical intervention is necessary to address these deformities, aiming to achieve correct alignment and functionality of the toes and to prevent potential gait destabilization. 1. Use Of Aspirin Monitor current aspirin use due to implications in perioperative management. Adjustments or cessation might be needed prior to surgery to mitigate bleeding risks. 2. Toe Deformities Second And Third Toe, Left Foot Recommended surgical fusion and tendon transfer for alignment correction, to be scheduled as an outpatient procedure. The surgery will involve an incision over the toe's top and fusion of the joints, alongside transfer of part of the tendon to prevent upward displacement. Post-operative weightbearing as tolerated, with a recovery plan involving rest for approximately two weeks post-surgery. Surgery is tentatively planned for December, when the patient is off aspirin. X-ray left foot 3 views weightbearing taken in clinic standard AP oblique and lateral views significant for hammertoe deformity of left second and third toe. I reviewed at length with the patient, the risks, potential complications, benefits, alternatives, expectations, and typical outcomes associated with the surgery. The risks and potential complications were explained in detail, including but not limited to infection, wound dehiscence or soft tissue complications, bleeding and hematoma, chronic edema, neuritis or nerve damage producing numbness or chronic pain, CRPS, failure to relieve pain or worsening pain, thick / painful / unsightly scar, limited motion / stiffness, malposition, delayed union, malunion, or nonunion, fracture, reaction to implants, anesthetic complications, venous thromboembolism, and deformity recurrence. I discussed the notion of no regrets with the patient as it pertains to complications and outcomes. The patient seemed to understand the nature of the proposed care and required convalescence. They asked appropriate questions, answered to their satisfaction. They are aware no guarantees can be made as to a satisfactory outcome and they understand there may be other possible unforeseen complications or outcomes not listed here that will be treated accordingly if they arise. There were no written or implied guarantees given to the patient. They gave informed consent to proceed. Procedure: Under mild sedation the patient was brought to the operating room and remained on the gurney in supine position. A timeout was performed. Anesthesia was then administered by the anesthesia service. Local anesthesia injected by myself consisting of 20 cc of 0.5% Marcaine in a left second and third ray block fashion with an additional 20 cc of Exparel subcutaneously in a grid like fashion at the dorsal left foot per manufacture recommendation and technique. Well-padded pneumatic tourniquet was applied to the left ankle. The left lower extremity was scrubbed, prepped and draped utilizing normal aseptic technique. Left foot was then exanguinated with an Esmarch bandage and tourniquet inflated to 250 mmHg. Attention was directed to the left forefoot where deep tendon contracture was appreciated with sagittal plane dominant deformity of the left and third second toe as well as arthrosis of the left second and third proximal interphalangeal joint. A linear longitudinal incision made over the dorsal aspect of the left second and third toe through skin with a #15 blade with dissection carried down to extensor tendon which was transected at the level of the proximal interphalangeal joint and dissected proximally and temporary by a mosquito hemostat at both the left second and third toe respectively left. The head and base of the right second and third proximal interphalangeal joint were resected with a oscillating saw pad about the field. Sharp dissection carried down to the flexor digitorum longus tendon which was transected at its most distal margin and split longitudinally and then transferred both medially laterally and hemisections fashion and transferred to the dorsal aspect of the left and third second toe which was then held in rectus and tendon was reapproximated utilizing 4-0 nylon helping to reduce the sagittal plane deformity at the left and third second toe and to help prevent cock-up toe deformity. The incisions were irrigated with saline solution. Attention was directed at arthrodesis site of the proximal interphalangeal joint left second third toe where subchondral drilling was performed at the proximal phalanx head and intermediate phalanx base. Next utilizing manufacture technique a Sutton hammer tube was implanted in intramedullary fashion with excellent compression at the proximal interphalangeal joint arthrodesis site excellent placement of hardware and rectus left and third second toe was appreciated both intraoperatively under direct visualization as well as with AP, oblique and lateral views noted to be excellent in all 3 planes with the second metatarsal plantar joint not being violated. Smooth range of motion appreciated at the left second and third metatarsal phalangeal joint. The incisions were then flushed with copious amounts of sterile saline solution and the extensor tendons were reapproximated utilizing 4-0 Vicryl. Subcutaneous tissue closed with 4-0 Vicryl and skin with 4-0 nylon. The incisions were then dressed with Adaptic, sterile 4 x 4's, Kerlix and Markie wrap followed by application of a cam boot. Tourniquet was deflated and a prompt hyperemic response was noted to the distal digits of the left foot. Patient tolerated the procedure and anesthesia well and was transferred to the PACU with vital signs stable and vascular status intact. Following a period of postoperative monitoring she will be discharged home, at home care instructions and scheduled follow-up patient is also given my cell phone number to contact me directly with any postoperative questions or concerns.
[2025-01-05] MEDS: BUPivacaine liposome 13.3 mg/mL SDV 20 mL 266 MG INJECTION (09:54)
[2025-01-05] MEDS: BUPivacaine 0.5% INJ 10 mL 20 ML INJECTION (09:55)
[2025-01-05 10:00] VITALS: BP 109/18; PULSE 74; RESP 24; TEMP 36.1; O2SAT 97
[2025-01-05 10:05] VITALS: BP 103/77; PULSE 89; RESP 20; O2SAT 95
--- NOTE | 2025-01-05 10:08 | P.BOP_ITS ---
Date of Procedure: 01/21/24 Surgeon: Han Louie DPM Continuous Process Machine Operator(s): Maylin Damon Haley Procedure(s) performed: Left second hammertoe correction, left third hammertoe correction, flexor tendon transfer left second and third toe left foot. Findings of the procedure(s): None Estimated blood loss: 2 mL Specimen(s) removed: No specimens Post-operative diagnosis: Left foot tendon contracture, left second and third hammertoe deformity
[2025-01-05 10:10] VITALS: BP 119/85; PULSE 91; RESP 20; O2SAT 95
[2025-01-05 10:15] VITALS: BP 109/89; PULSE 95; RESP 20; TEMP 36.6; O2SAT 95
[2025-01-05 10:28] VITALS: BP 118/86; PULSE 89; RESP 17; O2SAT 96
--- NOTE | 2025-01-05 10:53 | ANE.PACU2 ---
Inpatient post-anesthesia follow up: Airway intact: Yes Vital signs: Temperature 97.8 F Pulse Rate 89 Respiratory Rate 17 Blood Pressure 118/86 Pulse Oximetry 96 Oxygen Delivery Me thod Room Air Oxygen Flow Rate Fraction of Inspir ed Oxygen Hydration adequate: Yes Nausea and vomiting: No Pain level: 1 Mental status: Baseline
--- NOTE | 2025-01-05 10:56 | SUR.PHASEII ---
Patient educated on exparel bracelet.
== END 2025-01-05 10:53 | disposition home or self-care (01) ==
PROVIDERS: PCP Registered Nurse; Visit Provider Podiatrist Foot & Ankle Surgery
PROC: (CPT 28285; principal; 2025-01-05 08:55)
PROC: (CPT 28285; 2025-01-05 08:55)
DX: M20.42 Other hammer toe(s) (acquired), left foot (principal); M24.575 Contracture, left foot; E11.9 Type 2 diabetes mellitus without complications; F17.210 Nicotine dependence, cigarettes, uncomplicated; I10 Essential (primary) hypertension; Z79.899 Other long term (current) drug therapy; Z79.84 Long term (current) use of oral hypoglycemic drugs; G47.33 Obstructive sleep apnea (adult) (pediatric); Z79.85 Long-term (current) use of injectable non-insulin antidiabetic drugs; Z79.82 Long term (current) use of aspirin; Z88.8 Allergy status to other drugs, medicaments and biological substances; Z91.09 Other allergy status, other than to drugs and biological substances
CPT/HCPCS: 28285 ×2; 27691; 27692; 36416; 73630; 76000; 82962; 93005; C1713 ×2; C9290; J0690; J2250; J2704; J3010; J3490; J7030

== ENCOUNTER → 2025-01-12 09:09 | Outpatient (BNVA) | payer MEDICARE, MEDICAID, SELFPAY | PROVIDERS: PCP Registered Nurse; Visit Provider Specialist | DX: G43.711 Chronic migraine without aura, intractable, with status migrainosus (principal) | CPT/HCPCS: 64615; J0585 ==

== ENCOUNTER → 2025-01-18 14:52 | Outpatient (BNVA) | payer MEDICARE, MEDICAID, SELFPAY | PROVIDERS: PCP Registered Nurse; Visit Provider Podiatrist Foot & Ankle Surgery | DX: Z98.890 Other specified postprocedural states (principal); Z87.39 Personal history of other diseases of the musculoskeletal system and connective tissue | CPT/HCPCS: 73630; 99024 ==

== ENCOUNTER → 2025-01-30 14:12 | Outpatient (BNVA) | payer MEDICARE, MEDICAID, SELFPAY | PROVIDERS: PCP Registered Nurse; Visit Provider Podiatrist Foot & Ankle Surgery | DX: M79.672 Pain in left foot (principal); S99.922A Unspecified injury of left foot, initial encounter; W22.8XXA Striking against or struck by other objects, initial encounter; Z98.890 Other specified postprocedural states; Z87.39 Personal history of other diseases of the musculoskeletal system and connective tissue | CPT/HCPCS: 73630; 99213 ==

== ENCOUNTER → 2025-03-15 13:19 | Outpatient (BNVA) | payer MEDICARE, MEDICAID, SELFPAY | PROVIDERS: PCP Registered Nurse; Visit Provider Podiatrist Foot & Ankle Surgery | DX: Z98.890 Other specified postprocedural states (principal); Z87.39 Personal history of other diseases of the musculoskeletal system and connective tissue | CPT/HCPCS: 73630; 99024 ==